=== PATIENT | female | born 1970 | race Caucasian/White ===

== ENCOUNTER → 2017-12-29 | Outpatient (CLI) | payer BC ==
[2015-12-07 16:28] VITALS: BP 117/67
[~2017-12-29] MED LIST: OMEPRAZOLE D/R20 MG PO
== END ==
LOC: CARDLAB 12-23 12:44 → CARDREHAB 14:44
DX: R07.9 Chest pain, unspecified (principal)

== ENCOUNTER → 2019-05-27 | Outpatient (CLI) | payer BC ==
[2015-12-07 16:28] VITALS: BP 117/67
== END ==
LOC: RAD 07:00
DX: R31.9 Hematuria, unspecified (principal); Z87.442 Personal history of urinary calculi

== ENCOUNTER 2020-10-20 10:59 | Outpatient (RCR) | payer BC ==
[2015-12-07 16:28] VITALS: BP 117/67
== END 2020-12-05 16:30 | disposition home or self-care (01) ==
LOC: PT 10:59
DX: M54.40 Lumbago with sciatica, unspecified side (principal)

== ENCOUNTER → 2021-07-17 | Outpatient (CLI) | payer BC | LOC: MAMMO 13:45 | DX: Z12.31 Encounter for screening mammogram for malignant neoplasm of breast (principal); N64.89 Other specified disorders of breast ==

== ENCOUNTER → 2021-07-19 | Outpatient (CLI) | payer BC | LOC: MAMMO 12:15 | DX: N63.31 Unspecified lump in axillary tail of the right breast (principal); N64.89 Other specified disorders of breast; R92.8 Other abnormal and inconclusive findings on diagnostic imaging of breast ==

== ENCOUNTER → 2022-02-26 | Outpatient (CLI) | payer BC | LOC: RAD 09:47 | DX: N20.0 Calculus of kidney (principal) ==

== ENCOUNTER → 2023-05-27 | Outpatient (CLI) | payer BC ==
[~2023-05-27] MED LIST changes: +ASHWAGANDHA300 MG; +FISH OIL1 IU PO; +MAGNESIUM100 M1; +MINIVELLE TD; +NATURE S BLEND PO; +PROBIOTIC1 EAC1 PO; +PROGESTERONE200 MG PO; +THEANINE; +VITAMIN D310 MC3; +VITAMIN K100 MC1; +ZETIA10 M1 PO
== END ==
LOC: RAD 07:00
DX: K80.20 Calculus of gallbladder without cholecystitis without obstruction (principal); K82.8 Other specified diseases of gallbladder; D25.9 Leiomyoma of uterus, unspecified

== ENCOUNTER → 2024-01-05 | Outpatient (CLI) | payer BC | LOC: RAD 10:00 → MAMMO 10:00 | DX: Z13.820 Encounter for screening for osteoporosis (principal); M81.0 Age-related osteoporosis without current pathological fracture; Z91.89 Other specified personal risk factors, not elsewhere classified ==